=== PATIENT | male | born 1995 | race Caucasian/White ===

== ENCOUNTER 2018-06-22 15:09 | Inpatient (IN) | payer OTHER ==
[2018-06-22 15:30] LABS: PLATELET COUNT 277 10^3/uL (150-400)
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
--- NOTE | 2018-06-22 18:27 | ASMTTCLDSP ---
TLC Discharge Disposition Disposition: Answers: Admit Discharge Concerns/Recommendations: Notes: Per directive and order from [facility] on-call psychiatrist, Mehul Lam MD, Dr. Lam agreed to accept pt for voluntary admission to . Was patient given the Answers: Yes Inpatient [facility] Prohibited Belongings List while in the ED? For inpatient Mehul Lam MD admission, the following psychiatrist agreed to accept patient for admission to [facility] ([facility]): Date Signed: 06/22/2018 06:26 PM Electronically Signed By:Birgit Carballo
[2018-06-22] MEDS ORDERED: OLANZapine 5 MG TAB PO PRN (21:33)
[2018-06-22] MEDS ORDERED: MAG HYDROX/AL HYDROX/SIMETH 30 ML UDCUP PO PRN (21:33)
[2018-06-22] MEDS ORDERED: MAGNESIUM HYDROXIDE 30 ML UDCUP PO PRN (21:33)
[2018-06-22] MEDS ORDERED: LORazepam 0.5 MG TAB PO PRN (21:33)
[2018-06-22] MEDS ORDERED: ACETAMINOPHEN 325 MG TAB PO PRN (21:33)
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
--- NOTE | 2018-06-23 16:17 | PDMN ---
Medical Necessity Medical necessity: Pt meets inpt criteria per MD order and [facility] B-[id number], Anxiety Disorders, Adult: Inpatient Care, 2 days. 22 y/o admitted w/adjustment disorder w/mixed disturbance of emotion and conduct, stimulant use disorder, cocaine, severe, cannabis use disorder, severe, and R/O major depressive disorder, requires continued inpt psychiatric care b/c of current depression and recent suicidal ideation w/reported attempt, on M1 hold due to risk of harm to self.
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
[2018-06-25 06:44] VITALS: BP 93/63
--- NOTE | 2018-06-25 14:33 | ASMTBHDC ---
Notes Note: Notes: CC checked in with patient. CC reviewed pt's follow up plans with pt. Pt. agrees to reach out to [facility] on Tuesday. Pt. stated he has been "inspired being here". Pt. reports appreciating staff and groups. Pt. reports he will also follow up with substance referrals provided. Pt.'s mother was present and will be taking the pt. to her home to stay with her. CC sent referral to P, pt. to follow up. CC provided pt. with walk-in times for P. Date Signed: 06/25/2018 02:32 PM Electronically Signed By:Estela Purcell
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
== END 2018-06-25 14:48 | disposition home or self-care (01) | DRG 881 ==
LOC: BBEH 20:40
PROVIDERS: ADMIT Psychiatry & Neurology Behavioral Neurology & Neuropsychiatry; ATTEND Psychiatry & Neurology Behavioral Neurology & Neuropsychiatry
DX: F43.21 Adjustment disorder with depressed mood (principal); F32.9 Major depressive disorder, single episode, unspecified; R45.851 Suicidal ideations; F14.90 Cocaine use, unspecified, uncomplicated; F12.90 Cannabis use, unspecified, uncomplicated; E78.5 Hyperlipidemia, unspecified; Z65.3 Problems related to other legal circumstances; Z63.0 Problems in relationship with spouse or partner
CPT/HCPCS: 80305; G0480